=== PATIENT | female | born 1955 | race Caucasian/White ===

== ENCOUNTER 2017-04-23 21:39 | Emergency (ER) | payer OTHER ==
[~2017-04-23 21:39] MED LIST: FENO145T2 PO; LOVA40TA PO
[2017-04-23 21:51] VITALS: BP 156/80; PULSE 99; RESP 20; TEMP 99.1; O2SAT 96
[2017-04-23 22:23] LABS: BLOOD, URINE NEG (NEG); GLUCOSE,URINE NEG (NEG); KETONE, URINE NEG (NEG); NITRITE,URINE NEG (NEG)
[2017-04-23] MEDS ORDERED: FENO145T2 PO (22:51)
[2017-04-23] MEDS ORDERED: LOVA40TA PO (22:51)
[2017-04-23 23:10] LABS: COMMENT (UR) CULT NOT INDICATED; CULTURE IF INDICATED CULT NOT INDICATED; SQUAMOUS EPITHELIAL CELL URINE 0-5 /hpf (0-5); URINE COLOR YELLOW (YELLW/STRAW); WBC, URINE 0-2 /hpf (0-5)
--- NOTE | 2017-04-23 23:18 | PD ---
HPI Chief Complaint: Abdominal Pain Time Seen by Provider: 23:08 Travel History International Travel<30 days: No Contact w/Intl Traveler<30days: No Traveled to known affect area: No History of Present Illness HPI The patient is a 61-year-old female that complains of bilateral lower abdominal pain for 2 days. She denies any nausea, vomiting or diarrhea. She denies any fever. She has had a hysterectomy/oophorectomy but still has her appendix and gallbladder. She states the pain feels like things are "swollen" down there, a fullness and the intensity is a 7/10. The pain is constant. She does have a history of kidney stones. She denies any dysuria, frequency or urgency. She states the pain radiates to the back bilaterally. PFSH Past Medical History Asthma: No Blood Disorders: No Anxiety: Yes Depression: No Heart Rhythm Problems: No Cancer: Yes (skin ca on face) Cardiovascular Problems: No High Cholesterol: No Chemotherapy: No Chest Pain: Yes Congestive Heart Failure: No COPD: No Diabetes: No Endocrine: No Genitourinary: No Hepatitis: No Hypertension: No Immune Disorder: No Medical other: Yes (carrington tee on r) Musculoskeletal: No Neurologic: No Psychiatric: Yes Reproductive: No Respiratory: Yes Myocardial Infarction: No Radiation Therapy: No Sleep Apnea: No Thyroid Disease: No Tetanus Vaccination: Unknown Influenza Vaccination: No Past Surgical History AICD: No Arteriovenous Shunt: No Gynecologic Surgery: Yes (d+c) Hysterectomy: Yes Insulin Pump: No Joint Replacement: No Pacemaker: No Other Surgery: Yes (KIDNEY STONE REMOVAL) Social History Alcohol Use: No Tobacco Use: Yes (1/2 PK A DAY) Substance Use: No Allergies-Medications (Allergen,Severity, Reaction): Coded Allergies: iodine (Unverified Allergy, Severe, Chest Pain, 04/23/17) iohexol (Unverified Allergy, Severe, PT STATES RUSHED TO HOSP/DELAYED REACT., 04/23/17) potassium iodide (Unverified Allergy, Severe, Chest Pain, 04/23/17) povidone-iodine (Unverified Allergy, Severe, Chest Pain, 04/23/17) sodium iodide (Unverified Allergy, Severe, Chest Pain, 04/23/17) sodium iodide (Unverified Allergy, Severe, Chest Pain, 04/23/17) Reported Meds & Prescriptions Reported Meds & Active Scripts Active Reported Fenofibrate 145 Mg Tab 145 Mg PO DAILY Lovastatin 40 Mg Tab 40 Mg PO DAILY Review of Systems Except as stated in HPI: all other systems reviewed are Neg Physical Exam Narrative GENERAL: The patient is alert, oriented 3 and in moderate apparent distress with her abdominal discomfort. Her vital signs show blood pressure 156/80 but otherwise normal. The heart rate is 99 however and the temperature is 99.1. SKIN: Focused skin assessment warm/dry. HEAD: Atraumatic. Normocephalic. EYES: Pupils equal and round. No scleral icterus. No injection or drainage. ENT: No nasal bleeding or discharge. Mucous membranes pink and moist. NECK: Trachea midline. No JVD. CARDIOVASCULAR: Regular rate and rhythm. No murmur appreciated. RESPIRATORY: No accessory muscle use. Clear to auscultation. Breath sounds equal bilaterally. GASTROINTESTINAL: Abdomen soft, with tenderness to direct palpation in the bilateral lower quadrants, nondistended. Hepatic and splenic margins not palpable. No guarding or rebound is present. There is no flank tenderness present. MUSCULOSKELETAL: No obvious deformities. No clubbing. No cyanosis. No edema. NEUROLOGICAL: Awake and alert. No obvious cranial nerve deficits. Motor grossly within normal limits. Normal speech. PSYCHIATRIC: Appropriate mood and affect; insight and judgment normal. Data Data Last Documented VS Vital Signs Date Time Temp Pulse Resp B/P (MAP) Pulse Ox O2 Delivery O2 Flow Rate FiO2 04/24/17 00:26 16 04/23/17 23:50 97 Room Air 04/23/17 21:51 99.1 99 156/80 (105) Orders Orders Urinalysis - C+S If Indicated (04/23/17 22:09) Complete Blood Count With Diff (04/23/17 23:18) Comprehensive Metabolic Panel (04/23/17 23:18) Lipase (04/23/17 23:18) Ct Abd/Pel W/O Iv Contrast (04/23/17 23:18) Iv Access Insert/Monitor (04/23/17 23:18) Ecg Monitoring (04/23/17 23:18) Oximetry (04/23/17 23:18) Sodium Chloride 0.9% Flush (Ns Flush) (04/23/17 23:30) Sodium Chlor 0.9% 1000 Ml Inj (Ns 1000 M (04/23/17 23:30) Hydromorphone Pf Inj (Dilaudid Pf Inj) (04/23/17 23:30) Ondansetron Inj (Zofran Inj) (04/23/17 23:30) Ed Discharge Order (04/24/17 00:40) Labs Laboratory Tests Test 04/23/17 22:00 04/23/17 23:27 Urine Color YELLOW Urine Turbidity CLEAR Urine pH 7.0 Urine Specific Organ 1.009 Urine Protein NEG mg/dL Urine Glucose (UA) NEG mg/dL Urine Ketones NEG mg/dL Urine Occult Blood NEG Urine Nitrite NEG Urine Bilirubin NEG Urine Leukocyte Esterase NEG Urine WBC 0-2 /hpf Urine Squamous Epithelial Cells 0-5 /hpf Microscopic Urinalysis Comment CULT NOT INDICATED White Blood Count 9.3 TH/MM3 Red Blood Count 5.03 MIL/MM3 Hemoglobin 14.5 GM/DL Hematocrit 44.2 % Mean Corpuscular Volume 87.9 FL Mean Corpuscular Hemoglobin 28.9 PG Mean Corpuscular Hemoglobin Concent 32.9 % Red Cell Distribution Width 12.0 % Platelet Count 210 TH/MM3 Mean Platelet Volume 8.6 FL Neutrophils (%) (Auto) 70.6 % Lymphocytes (%) (Auto) 21.1 % Monocytes (%) (Auto) 5.8 % Eosinophils (%) (Auto) 1.8 % Basophils (%) (Auto) 0.7 % Neutrophils # (Auto) 6.5 TH/MM3 Lymphocytes # (Auto) 2.0 TH/MM3 Monocytes # (Auto) 0.5 TH/MM3 Eosinophils # (Auto) 0.2 TH/MM3 Basophils # (Auto) 0.1 TH/MM3 CBC Comment DIFF FINAL Differential Comment Blood Urea Nitrogen 14 MG/DL Creatinine 0.88 MG/DL Random Glucose 106 MG/DL Total Protein 7.7 GM/DL Albumin 3.7 GM/DL Calcium Level 9.1 MG/DL Alkaline Phosphatase 82 U/L Aspartate Amino Transf (AST/SGOT) 11 U/L Alanine Aminotransferase (ALT/SGPT) 25 U/L Total Bilirubin 0.5 MG/DL Sodium Level 140 MEQ/L Potassium Level 3.8 MEQ/L Chloride Level 107 MEQ/L Carbon Dioxide Level 26.6 MEQ/L Anion Gap 6 MEQ/L Estimat Glomerular Filtration Rate 65 ML/MIN Lipase 141 U/L [facility] Medical Decision Making Medical Screen Exam Complete: Yes Emergency Medical Condition: Yes Medical Record Reviewed: Yes Interpretation(s) The CBC is normal. The urinalysis is normal and culture is not indicated. The complete metabolic profile shows a GFR of 65. The lipase is normal. The CT abdomen/pelvis without IV mild acute proximal sigmoid diverticulitis. There is focal wall thickening and pericolonic inflammation. No free air or abscess is present. Incidentally noted is the right kidney is smaller than the left and demonstrates scarring. There are nonobstructing kidney stones present. Also noted is some hepatic steatosis and severe atherosclerotic disease. Differential Diagnosis Diverticulitis, colitis, urinary tract infection, acute appendicitis, intestinal abscess Narrative Course The patient has acute diverticulitis. She will be given Flagyl and Cipro and follow-up with her reporting process consultant at [facility]. In the next 24 hours she should try to limit her food intake to clear liquids. If worse, she may need to return to the emergency department for reevaluation. Diagnosis Primary Impression: Acute diverticulitis Additional Instructions: The Flagyl is one tablet 3 times daily for 10 days and the Cipro is one tablet twice daily for 10 days. Do not drink alcohol with either of these medications but, particularly with Flagyl. Follow-up with your reporting process consultant at [facility]. Limit your food intake to clear liquids and the first 24 hours. This will give your intestines somewhat of a rest. If worse, return to the emergency department for reevaluation. Med/Other Pt SpecificInfo: Prescription(s) given Scripts Ciprofloxacin (Cipro) 500 Mg Tab 500 MG PO BID for Infection for 10 Days, #20 TAB 0 Refills Prov: Jose Gaines MD 04/24/17 Metronidazole (Flagyl) 500 Mg Tab 500 MG PO TID for Infection for 10 Days, TAB 0 Refills Prov: Jose Gaines MD 04/24/17 Disposition: 01 DISCHARGE HOME Condition: Stable Jose Gaines MD Apr 23, 2017 23:17
[2017-04-23] MEDS ORDERED: HYDROmorphone HCL PF 1 MG/ML VIAL IVP ONE (23:30)
[2017-04-23] MEDS ORDERED: SODIUM CHLORIDE 0.9% FLUSH 10 ML FLUSH IV FLUSH PRN (23:30)
[2017-04-23] MEDS ORDERED: ONDANSETRON HCL 4 MG/2 ML VIAL IV ONE (23:30)
[2017-04-23] MEDS ORDERED: SODIUM CHLOR 0.9% 1000 ML INJ 1,000 ML IV SCH (23:30)
[2017-04-23 23:49] LABS: CHLORIDE 107 MEQ/L (98-107); POTASSIUM 3.8 MEQ/L (3.5-5.1); SODIUM (NA) 140 MEQ/L (136-145)
[2017-04-23 23:50] VITALS: RESP 16; O2SAT 97
[2017-04-23 23:51] LABS: AUTOMATED NEUTROPHIL # 6.5 TH/MM3 (1.8-7.7); BASOPHIL # 0.1 TH/MM3 (0-0.2); BASOPHIL % 0.7 % (0.0-2.0); EOSINOPHIL # 0.2 TH/MM3 (0-0.4); EOSINOPHIL % 1.8 % (0.0-4.0); HEMATOCRIT 44.2 % (35.0-46.0); HEMO FLAGS DIFF FINAL; LYMPH % 21.1 % (9.0-44.0); MEAN CELL VOLUME 87.9 FL (80.0-100.0); MEAN CORPUSCULAR HEMOGLOBIN 28.9 PG (27.0-34.0); MEAN CORPUSCULAR HGB CONC 32.9 % (32.0-36.0); MONO % 5.8 % (0.0-8.0); NEUT % 70.6 % (16.0-70.0); PLATELET COUNT 210 TH/MM3 (150-450); RED BLOOD COUNT 5.03 MIL/MM3 (4.00-5.30); WHITE BLOOD COUNT 9.3 TH/MM3 (4.0-11.0)
[2017-04-23 23:53] LABS: ANION GAP 6 MEQ/L (5-15); BICARBONATE 26.6 MEQ/L (21.0-32.0); BLOOD UREA NITROGEN 14 MG/DL (7-18)
[2017-04-23 23:56] LABS: ALT (GPT) 25 U/L (10-53); AST (GOT) 11 U/L (15-37); GLOMERULAR FILTRATION RATE 65 ML/MIN (>89)
[2017-04-23 23:58] LABS: TOTAL BILIRUBIN ADULT 0.5 MG/DL (0.2-1.0)
[2017-04-23 23:59] LABS: ALKALINE PHOSPHATASE 82 U/L (45-117)
--- NOTE | 2017-04-24 00:16 | RADRPT ---
EXAM DATE/TIME: 04/23/2017 23:49 [facility] COMPARISON: No previous studies available for comparison. INDICATIONS : Low abdominal pain and bilateral flank pain worse on the left. Prior history of renal calculi. ORAL CONTRAST: No oral contrast ingested. RADIATION DOSE: 23.14 CTDIvol (mGy) MEDICAL HISTORY : Renal calculi. SURGICAL HISTORY : Hysterectomy. Renal calculi removal. ENCOUNTER: Initial ACUITY: 2 days PAIN SCALE: 8/10 LOCATION: Bilateral flank TECHNIQUE: Volumetric scanning of the abdomen and pelvis was performed. Using automated exposure control and ad justment of the mA and/or kV according to patient size, radiation dose was kept as low as reasonably achievable to obtain optimal diagnostic quality images. DICOM format image data is available electro nically for review and comparison. FINDINGS: LOWER LUNGS: The visualized lower lungs are clear. LIVER: Abnormal diffuse decreased density without lesion. There is no dilation of the biliary tree. No sherlyn cified gallstones. SPLEEN: Normal size without lesion. PANCREAS: Within normal limits. KIDNEYS: Right kidney is smaller than the left with areas of scarring and lobulated parenchyma. There is an ex ophytic cyst arising from the mid kidney measuring 15 mm and there are 2 nonobstructing right renal s tones measuring up to 6 mm. Left kidney is within normal limits without stones. No ureteral stones ar e visualized. ADRENAL GLANDS: Within normal limits. VASCULAR: There is no aortic aneurysm. There is severe atherosclerotic disease. BOWEL/MESENTERY: Stomach and small bowel demonstrate no abnormality. There is sigmoid diverticulosis. Appendix is norm al. Wall thickening and pericolonic inflammation and involves the proximal sigmoid colon. ABDOMINAL WALL: Within normal limits. RETROPERITONEUM: There is no lymphadenopathy. BLADDER: No wall thickening or mass. REPRODUCTIVE: Uterus is absent. INGUINAL: There is no lymphadenopathy or hernia. MUSCULOSKELETAL: There are degenerative changes of the lumbar spine. CONCLUSION: 1. The patient's pain is caused by a mild acute proximal sigmoid diverticulitis. There is focal wall thickening and pericolonic inflammation. No free air or abscess is present. 2. The right kidney is smaller than the left and demonstrates scarring. There are nonobstructing righ t renal stones. 3. Nonacute findings include hepatic steatosis and severe atherosclerotic disease. Gutierrez Vann MD on April 24, 2017 at 0:09 Board Certified Radiologist. This report was verified electronically.
[2017-04-24 00:47] VITALS: BP 136/66; PULSE 73; RESP 16; O2SAT 97
[2017-04-24] MEDS ORDERED: CIPR-9 PO (00:47)
[2017-04-24] MEDS ORDERED: METR-1 PO (00:47)
== END 2017-04-24 01:20 | disposition home or self-care (01) ==
LOC: PHED 21:39
DX: K57.32 Diverticulitis of large intestine without perforation or abscess without bleeding (principal); F17.200 Nicotine dependence, unspecified, uncomplicated
CPT/HCPCS: 74176; 80053; 81001; 83690; 85025; 96361; 96374; 96375; 99285; J1170; J2405; J7030

== ENCOUNTER 2017-05-29 18:10 | Emergency (ER) | payer OTHER ==
[~2017-05-29] VITALS: Ht 167.6 cm; Wt 87.5 kg
[~2017-05-29 18:10] MED LIST changes: +CIPR-9 PO; +METR-1 PO
[2017-05-29 18:14] VITALS: BP 131/81; PULSE 125; RESP 24; TEMP 100.1; O2SAT 93
[2017-05-29 18:32] VITALS: BP 129/75; PULSE 103; RESP 20; O2SAT 93
[2017-05-29] MEDS ORDERED: ALPR.25 PO (18:38)
--- NOTE | 2017-05-29 18:41 | PD ---
HPI Chief Complaint: Abdominal Pain Time Seen by Provider: 18:37 Travel History International Travel<30 days: No Contact w/Intl Traveler<30days: No Traveled to known affect area: No History of Present Illness HPI Patient presents with complaints of right lower abdominal pain for 3 days. Denies any change in urine or bowel. Reports similar symptoms with diverticulitis 1 month ago. Denies any blood per stool or urine. Denies any nausea vomiting or fever. History of hysterectomy and anterior approach kidney stone removal with a congenital small right kidney. Aggravated with walking. Improves with rest. PFSH Past Medical History Asthma: No Blood Disorders: No Anxiety: Yes Depression: No Heart Rhythm Problems: No Cancer: Yes (skin ca on face) Cardiovascular Problems: No High Cholesterol: No Chemotherapy: No Chest Pain: Yes Congestive Heart Failure: No COPD: No Diabetes: No Diminished Hearing: No Endocrine: No Genitourinary: No Hepatitis: No Hypertension: No Immune Disorder: No Medical other: Yes (carrington tee on r) Musculoskeletal: No Neurologic: No Psychiatric: Yes Reproductive: No Respiratory: Yes Immunizations Current: Yes Myocardial Infarction: No Radiation Therapy: No Sleep Apnea: No Thyroid Disease: No Tetanus Vaccination: < 5 Years Influenza Vaccination: No ?: Not Past Surgical History Abdominal Surgery: Yes AICD: No Arteriovenous Shunt: No Genitourinary Surgery: Yes (KIDNEY STONES) Gynecologic Surgery: Yes (d+c) Hysterectomy: Yes Insulin Pump: No Joint Replacement: No Pacemaker: No Other Surgery: Yes (KIDNEY STONE REMOVAL) Social History Alcohol Use: No Tobacco Use: Yes (1/2 PK A DAY) Substance Use: No Allergies-Medications (Allergen,Severity, Reaction): Coded Allergies: iodine (Unverified Allergy, Severe, Chest Pain, 05/29/17) iohexol (Unverified Allergy, Severe, PT STATES RUSHED TO HOSP/DELAYED REACT., 05/29/17) potassium iodide (Unverified Allergy, Severe, Chest Pain, 05/29/17) povidone-iodine (Unverified Allergy, Severe, Chest Pain, 05/29/17) sodium iodide (Unverified Allergy, Severe, Chest Pain, 05/29/17) sodium iodide (Unverified Allergy, Severe, Chest Pain, 05/29/17) Reported Meds & Prescriptions Reported Meds & Active Scripts Active Reported Xanax (Alprazolam) 0.25 Mg Tab 0.25 Mg PO DAILY PRN Fenofibrate 145 Mg Tab 145 Mg PO DAILY Lovastatin 40 Mg Tab 40 Mg PO DAILY Review of Systems General / Constitutional: No: Fever Eyes: No: Visual changes HENT: No: Headaches Cardiovascular: No: Chest Pain or Discomfort Respiratory: No: Shortness of Breath Gastrointestinal: Positive: Abdominal Pain Genitourinary: No: Dysuria Musculoskeletal: No: Pain Skin: No Rash Neurologic: No: Weakness Psychiatric: No: Depression Endocrine: No: Polydipsia Hematologic/Lymphatic: No: Easy Bruising Physical Exam Narrative GENERAL: Well-nourished, well-developed patient. SKIN: Focused skin assessment warm/dry. HEAD: Normocephalic. EYES: No scleral icterus. No injection or drainage. NECK: Supple, trachea midline. No JVD or lymphadenopathy. CARDIOVASCULAR: Regular rate and rhythm without murmurs, gallops, or rubs. RESPIRATORY: Breath sounds equal bilaterally. No accessory muscle use. GASTROINTESTINAL: Abdomen soft, tender right lower quadrant, no guarding or rebound tenderness nondistended. Right lower quadrant abdominal scar noted MUSCULOSKELETAL: No cyanosis, or edema. BACK: Nontender without obvious deformity. No CVA tenderness. Data Data Last Documented VS Vital Signs Date Time Temp Pulse Resp B/P (MAP) Pulse Ox O2 Delivery O2 Flow Rate FiO2 05/29/17 18:32 103 20 129/75 (93) 93 Room Air 05/29/17 18:14 100.1 Orders Orders Complete Blood Count With Diff (05/29/17 18:37) Comprehensive Metabolic Panel (05/29/17 18:37) Lipase (05/29/17 18:37) Lactic Acid (05/29/17 18:37) Prothrombin Time / Inr (Pt) (05/29/17 18:37) Urinalysis - C+S If Indicated (05/29/17 18:37) Ct Abd/Pel W Iv Contrast(Rout) (05/29/17 18:37) Iv Access Insert/Monitor (05/29/17 18:37) Ecg Monitoring (05/29/17 18:37) Oximetry (05/29/17 18:37) NPO (05/29/17 18:37) Sodium Chloride 0.9% Flush (Ns Flush) (1/7/18 18:45) MDM Medical Decision Making Medical Screen Exam Complete: Yes Emergency Medical Condition: Yes Differential Diagnosis Diverticulitis, nephrolithiasis, adhesions, small bowel obstruction Narrative Course assessment and plan was discussed with patient at bedside. Initially thought we could treat this quickly without extensive workup since her symptoms are similar to previous episodes of diverticulitis however with her congenital kidney and kidney stone history of a CT would be prudent. Physician Communication Physician Communication Case discussed and care transferred to Al Norman MD May 29, 2017 18:41
[2017-05-29] MEDS ORDERED: SODIUM CHLORID 0.9% 500 ML INJ 500 ML IV ONE (18:45)
[2017-05-29] MEDS ORDERED: SODIUM CHLORIDE 0.9% FLUSH 10 ML FLUSH IV FLUSH PRN (18:45)
[2017-05-29 18:54] VITALS: O2SAT 97
[2017-05-29 18:57] LABS: AUTOMATED NEUTROPHIL # 2.9 TH/MM3 (1.8-7.7); BASOPHIL % 0.6 % (0.0-2.0); EOSINOPHIL % 0.3 % (0.0-4.0); HEMATOCRIT 43.6 % (35.0-46.0); HEMOGLOBIN 13.9 GM/DL (11.6-15.3); LYMPH % 18.7 % (9.0-44.0); LYMPHOCYTE # 0.7 TH/MM3 (1.0-4.8); MEAN CELL VOLUME 89.3 FL (80.0-100.0); MEAN CORPUSCULAR HEMOGLOBIN 28.5 PG (27.0-34.0); MEAN CORPUSCULAR HGB CONC 31.9 % (32.0-36.0); MEAN PLATELET VOLUME 8.1 FL (7.0-11.0); MONOCYTE # 0.4 TH/MM3 (0-0.9); NEUT % 69.4 % (16.0-70.0); PLATELET COUNT 170 TH/MM3 (150-450); RED BLOOD COUNT 4.88 MIL/MM3 (4.00-5.30); RED CELL DISTRIBUTION WIDTH 12.4 % (11.6-17.2)
[2017-05-29 19:05] LABS: CHLORIDE 103 MEQ/L (98-107); SODIUM (NA) 138 MEQ/L (136-145)
[2017-05-29 19:07] LABS: INTERNATIONAL NORMALIZED RATIO 1.1 RATIO; PROTHROMBIN TIME - PATIENT 11.4 SEC (9.8-11.6)
[2017-05-29 19:09] LABS: ALBUMIN 3.4 GM/DL (3.4-5.0); BICARBONATE 28.8 MEQ/L (21.0-32.0); GLUCOSE,RANDOM 145 MG/DL (74-106); LIPASE 180 U/L (73-393)
[2017-05-29 19:10] LABS: BLOOD UREA NITROGEN 17 MG/DL (7-18)
[2017-05-29 19:12] LABS: ALT (GPT) 40 U/L (10-53); AST (GOT) 39 U/L (15-37); GLOMERULAR FILTRATION RATE 56 ML/MIN (>89)
[2017-05-29 19:14] LABS: TOTAL BILIRUBIN ADULT 0.3 MG/DL (0.2-1.0); TOTAL PROTEIN 7.1 GM/DL (6.4-8.2)
[2017-05-29 19:15] LABS: ALKALINE PHOSPHATASE 64 U/L (45-117)
--- NOTE | 2017-05-29 19:17 | RADRPT ---
EXAM DATE/TIME: 05/29/2017 18:49 [facility] COMPARISON: CT ABDOMEN & PELVIS W/O CONTRAST, April 23, 2017, 23:49. INDICATIONS : Right lower quadrant pain. ORAL CONTRAST: No oral contrast ingested. RADIATION DOSE: 17.09 CTDIvol (mGy) MEDICAL HISTORY : Renal calculi. Skin cancer. Small right kidney, congenital. SURGICAL HISTORY : Hysterectomy. ENCOUNTER: Initial ACUITY: 3 days PAIN SCALE: 9/10 LOCATION: Right lower quadrant TECHNIQUE: Volumetric scanning of the abdomen and pelvis was performed. Using automated exposure control and ad justment of the mA and/or kV according to patient size, radiation dose was kept as low as reasonably achievable to obtain optimal diagnostic quality images. DICOM format image data is available electro nically for review and comparison. FINDINGS: LOWER LUNGS: The visualized lower lungs are clear. LIVER: Liver is diffusely hypodense. There is no evidence of biliary duct dilatation or focal space occupyin g lesions. SPLEEN: Normal size without lesion. PANCREAS: Within normal limits. KIDNEYS: Diffuse scarring and decreased size is identified in the right kidney. Nonobstructing calculi and cys t are also noted and appear stable. Left kidney is unremarkable and stable. ADRENAL GLANDS: Within normal limits. VASCULAR: Moderate calcified plaque is present throughout the aorta. BOWEL/MESENTERY: Diverticula present throughout the colon. There are no active inflammatory changes. There are no abdo herrera fluid collections, free air or masses. ABDOMINAL WALL: Within normal limits. RETROPERITONEUM: There is no lymphadenopathy. BLADDER: No wall thickening or mass. REPRODUCTIVE: Uterus has been removed. INGUINAL: There is no lymphadenopathy or hernia. MUSCULOSKELETAL: Within normal limits for patient age. CONCLUSION: 1. No acute process. 2. Uncomplicated colonic diverticulosis. 3. Hepatic steatosis. 4. Small scarred right kidney with nonobstructing calculi and cysts. Sulaiman Edwards MD on May 29, 2017 at 19:11 Board Certified Radiologist. This report was verified electronically.
[2017-05-29] MEDS ORDERED: ZOFR4TAB PO (19:36)
[2017-05-29] MEDS ORDERED: TRAM50TA PO (19:36)
--- NOTE | 2017-05-29 19:39 | PD ---
Physical Exam Time Seen by Provider: 19:[address] Dupont left this patient with me to check the results of the CT scan and likely discharge. Data Data Last Documented VS Vital Signs Date Time Temp Pulse Resp B/P (MAP) Pulse Ox O2 Delivery O2 Flow Rate FiO2 05/29/17 18:54 97 Room Air 05/29/17 18:32 103 20 05/29/17 18:14 100.1 Orders Orders Complete Blood Count With Diff (05/29/17 18:37) Comprehensive Metabolic Panel (05/29/17 18:37) Lipase (05/29/17 18:37) Lactic Acid (05/29/17 18:37) Prothrombin Time / Inr (Pt) (05/29/17 18:37) Urinalysis - C+S If Indicated (05/29/17 18:37) Iv Access Insert/Monitor (05/29/17 18:37) Ecg Monitoring (05/29/17 18:37) Oximetry (05/29/17 18:37) NPO (05/29/17 18:37) Sodium Chloride 0.9% Flush (Ns Flush) (05/29/17 18:45) Sodium Chlorid 0.9% 500 Ml Inj (Ns 500 M (05/29/17 18:45) Ct Abd/Pel W/O Iv Contrast (05/29/17 ) Labs Laboratory Tests Test 05/29/17 18:48 White Blood Count 4.0 TH/MM3 Red Blood Count 4.88 MIL/MM3 Hemoglobin 13.9 GM/DL Hematocrit 43.6 % Mean Corpuscular Volume 89.3 FL Mean Corpuscular Hemoglobin 28.5 PG Mean Corpuscular Hemoglobin Concent 31.9 % Red Cell Distribution Width 12.4 % Platelet Count 170 TH/MM3 Mean Platelet Volume 8.1 FL Neutrophils (%) (Auto) 69.4 % Lymphocytes (%) (Auto) 18.7 % Monocytes (%) (Auto) 11.0 % Eosinophils (%) (Auto) 0.3 % Basophils (%) (Auto) 0.6 % Neutrophils # (Auto) 2.9 TH/MM3 Lymphocytes # (Auto) 0.7 TH/MM3 Monocytes # (Auto) 0.4 TH/MM3 Eosinophils # (Auto) 0.0 TH/MM3 Basophils # (Auto) 0.0 TH/MM3 CBC Comment DIFF FINAL Differential Comment Prothrombin Time 11.4 SEC Prothromb Time International Ratio 1.1 RATIO Blood Urea Nitrogen 17 MG/DL Creatinine 1.00 MG/DL Random Glucose 145 MG/DL Total Protein 7.1 GM/DL Albumin 3.4 GM/DL Calcium Level 9.0 MG/DL Alkaline Phosphatase 64 U/L Aspartate Amino Transf (AST/SGOT) 39 U/L Alanine Aminotransferase (ALT/SGPT) 40 U/L Total Bilirubin 0.3 MG/DL Sodium Level 138 MEQ/L Potassium Level 3.9 MEQ/L Chloride Level 103 MEQ/L Carbon Dioxide Level 28.8 MEQ/L Anion Gap 6 MEQ/L Estimat Glomerular Filtration Rate 56 ML/MIN Lactic Acid Level 1.0 mmol/L Lipase 180 U/L [facility] Medical Record Reviewed: Yes Supervised Visit with JEWEL: Yes Interpretation(s) The CT abdomen/pelvis without IV contrast shows no acute process. There is uncomplicated colonic diverticulosis, hepatic steatosis and a small scarred right kidney with nonobstructing calculi and cysts. The ProTime and INR are normal. The complete metabolic profile shows a GFR 56, glucose 145, GOT 39 but is otherwise normal. The lipase is normal. The lactic acid is normal at 1.0. The CBC is normal and the white count is only 4000. Differential Diagnosis Musculoskeletal pain, diverticulitis, appendicitis, urinary stone Narrative Course There is no evidence on the CT scan for diverticulitis, appendicitis or a ureteral stone. I can completely reproduce the patient's pain by pressing on the ribs on the right flank. Impression: Musculoskeletal pain Plan: The patient will get tramadol, 50 mg every 4 hours as needed for pain and a prescription for Zofran 4 mg. Diagnosis Primary Impression: Musculoskeletal pain Additional Instruction: Follow-up with her primary care physician this week. Do not drink alcohol or drive on the tramadol. The Zofran is for nausea and it is every 6 hours as needed. Increase her clear liquid intake to make sure you stay well-hydrated. Med/Other Pt SpecificInfo: Prescription(s) given Scripts Ondansetron (Zofran) 4 Mg Tab 4 MG PO Q6HR Y for NAUSEA OR VOMITING, #28 TAB 0 Refills Prov: Jose Gaines MD 05/29/17 Tramadol (Tramadol) 50 Mg Tab 50 MG PO Q4H Y for PAIN, #28 TAB 0 Refills Prov: Jose Gaines MD 05/29/17 Disposition: 01 DISCHARGE HOME Condition: Stable Jose Gaines MD May 29, 2017 19:39
[2017-05-29] MEDS ORDERED: ONDANSETRON HCL 4 MG/2 ML VIAL IV ONE (19:45)
[2017-05-29 20:03] VITALS: BP 112/72; TEMP 99.1
== END 2017-05-29 20:19 | disposition home or self-care (01) ==
LOC: PHED 18:10
DX: M79.1 Myalgia (principal); R11.0 Nausea; F17.210 Nicotine dependence, cigarettes, uncomplicated
CPT/HCPCS: 74176; 80053; 83605; 83690; 85025; 85610; 96361; 96374; 99285; J2405; J7040

== ENCOUNTER → 2017-10-13 | Outpatient (CLI) | payer OTHER ==
[~2017-10-13] MED LIST changes: +ALPR.25 PO; -CIPR-9 PO; +IOHEXOL 350 MG/ML 10 ML VIAL (for RAD DIAG) IVCONTRAST ONE; -METR-1 PO; +NITROGLYCERIN 0.4 MG SL 25 TABS/BTL SL ONE; +TRAM50TA PO; +ZOFR4TAB PO
[2017-10-13 10:00] VITALS: BP 143/76; PULSE 76; RESP 18
--- NOTE | 2017-10-13 14:15 | RADRPT ---
EXAM DATE: 10/13/2017 11:32 AM EDT AGE/SEX: 62 years / Female INDICATIONS: Chest pain, abnormal EKG. CLINICAL DATA: This is the patient's initial encounter. Patient reports that signs and symptoms have been present for 1 day and indicates a pain score of 4/10. MEDICAL/SURGICAL HISTORY: Renal calculi. Hysterectomy. RADIATION DOSE: 6.25 CTDI (mGy) COMPARISON: No prior [place] exams available for comparison. STUDY QUALITY: TECHNIQUE: The patient was given beta-blockers prior to the procedure. Resting heart rate prior to t he procedure was approximately bpm. Multiple contiguous axial images were obtained through the heart during bolus infusion of 100 ml Omnipaque 350 (iohexol) nonionic water-soluble contrast as a single exam dose. Images were acquired during peak arterial contrast. Images were reconstructed using a ret rospective gating algorithm including single sector and multi-sector algorithms at multiple phases of the cardiac cycle. Images were interpreted using a combination of 2D and 3D visualization modes incl uding curved planar reformation, thin slab maximum intensity projection and volume rendering in order to evaluate cardiac structure, morphology and function. Using automated exposure control and adjustm ent of the mA and/or kV according to patient size, radiation dose was kept as low as reasonably achie vable to obtain optimal diagnostic quality images. Calcium score: 77 FINDINGS: Vessel Analysis: There are three aortic valve leaflets with normal origin of the coronary ostia. Dominance: The coronary system is right dominant. Left Main: Normal size vessel without calcification or stenosis. LAD: Normal size vessel without calcification or stenosis. Circumflex: Normal size vessel without calcification or stenosis. RCA: Normal size vessel. Minimal eccentric calcification is identified in the proximal right coronar y artery. There is no evidence of significant stenosis. CONCLUSION: 1. Minimal eccentric calcified plaque in the right coronary artery. 2. No evidence of hemodynamically significant stenosis (greater than 50%). 3. Calcium score 77. This places the patient in the 70th percentile where 30% of females her age hav e a higher calcium score. Electronically signed by: Sulaiman Edwards MD 10/13/2017 2:14 PM EDT
== END ==
LOC: HRAD 08:35
PROVIDERS: ATTEND Family Medicine
DX: R07.9 Chest pain, unspecified (principal); R94.31 Abnormal electrocardiogram [ECG] [EKG]; F17.200 Nicotine dependence, unspecified, uncomplicated
CPT/HCPCS: 75574; Q9967